=== PATIENT | male | born 1960 | race Caucasian/White ===

== ENCOUNTER 2017-11-15 09:11 | Inpatient (IN) | payer MEDICARE, BC ==
[~2017-11-15] VITALS: Ht 182.9 cm; Wt 94.8 kg
[~2017-11-15 09:11] MED LIST: ALBUTEROL2.5 MG/31 INH; ALLEGRA-D 24 H1 EACH PO; ASPIRIN325 PO; COZAAR 25 MG TA25 M1 PO; DIFLUCAN200 MG PO; DUONEB 2.5-0.5 M3 ML INH; KEFLEX500 M1 PO; LEVAQUIN 500 M500 M2 PO; MIRALAX17 GM PO; MIRAPEX0.125 MG PO; MS CONTIN 30 MG30 M1 PO; MS CONTIN15 MG PO; MSL20MG/ML PO; NEURONTIN600 MG PO; NYSTATIN 1100000 U/M SW&SWALLOW; OXYCODONE HCL5 MG PO; PERCOCET PO; PREDNISONE 10 M10 MG PO; PREDNISONE 20 M20 M1 PO; PROTONIX40 M1 PO; STOOL SOFT-STI1 EACH PO; SYMBICORT160 MCG/4. INH; VALIUM5 MG PO; ZPAK PO
[2017-11-15 09:20] VITALS: BP 117/85
[2017-11-15] MEDS ORDERED: COZAAR 25 MG TA25 MG PO (09:24)
[2017-11-15 09:48] LABS: HEMATOCRIT 32.7 % (42.0-52.0); HEMOGLOBIN 10.3 gm/dL (14.0-18.0); MCH 26.1 pg (26.0-34.0); MCHC 31.6 g/dL (28.0-37.0); MCV 82.4 fL (80.0-100.0); RBC 3.97 mil/uL (4.50-6.00); RDW-CV 17.8 % (10.5-14.5)
[2017-11-15 09:57] LABS: POTASSIUM 4.3 mmol/L (3.5-5.1)
[2017-11-15 10:02] LABS: ALBUMIN 3.2 g/dL (3.4-5.0); TOTAL BILIRUBIN 0.2 mg/dL (<0.1-1.0); TOTAL PROTEIN 6.6 g/dL (6.4-8.2)
[2017-11-15 12:50] VITALS: BP 134/72
--- NOTE | 2017-11-15 13:57 | NUR ---
PATIENT ARRIVED TO UNIT AT 1250. ALERT AND ORIENTED X4. HAVING A SIGNIFICANT AMOUNT OF PAIN AT THIS TIME. DENIES NAUSEA. IV IS PATENT AND SALINE LOCKED AT THIS TIME. SLING IN PLACE. DRESSING C/D/I. VSS ON ROOM AIR. HOURLY ROUNDS HAVE BEEN MAINTAINED THROUGHOUT SHIFT. CALL LIGHT IS WITHIN REACH. NURSING WILL CONTINUE TO MONITOR.
[2017-11-15 16:00] VITALS: BP 114/68
--- NOTE | 2017-11-15 18:32 | NUR ---
ALERT AND ORIENTED X4. PAIN BEING MANAGED WITH PO AND IV PAIN MEDICATION. DENIES NAUSEA. SLING IN PLACE ON LEFT ARM. DRESSING IS C/D/I. PATIENT IS TOLERATING DIET. CAP-NO IN PLACE. VSS ON 2L O2. HOURLY ROUNDS HAVE BEEN MAINTAINED THROUGHOUT SHIFT. CALL LIGHT IS WITHIN REACH. NURSING WILL CONTINUE TO MONITOR.
[2017-11-15 22:00] VITALS: BP 101/66
[2017-11-16 01:08] VITALS: BP 111/63
[2017-11-16 04:08] VITALS: BP 105/64
[2017-11-16 04:18] LABS: ABSOLUTE LYMPHOCYTES 1.3 thou/uL (0.8-5.3); ABSOLUTE NEUTROPHILS 8.9 thou/uL (1.6-8.1); BASOPHILS 0.3 %; EOSINOPHILS 0.1 %; HEMATOCRIT 30.9 % (42.0-52.0); HEMOGLOBIN 9.9 gm/dL (14.0-18.0); LYMPHOCYTES 11.8 %; MCH 26.3 pg (26.0-34.0); MCHC 32.1 g/dL (28.0-37.0); MCV 81.9 fL (80.0-100.0); MONOCYTES 8.9 %; MPV 8.7 fl. (7.2-11.1); NUCLEATED RBCS 0 /100WBC; PLATELET COUNT* 377 thou/uL (150-400); POLYS 78.9 %; RBC 3.77 mil/uL (4.50-6.00); RDW-CV 17.7 % (10.5-14.5); WBC 11.3 thou/uL (4.0-11.0)
[2017-11-16 04:38] LABS: CREATININE 0.9 mg/dL (0.6-1.3); POTASSIUM 4.3 mmol/L (3.5-5.1)
[2017-11-16 08:00] VITALS: BP 129/80
--- NOTE | 2017-11-16 08:11 | NUR ---
ALERT AND ORIENTED X4. FREQUENTLY ASKED FOR PAIN MEDICATION. USING IV AND PO PAIN MEDICATION TO HELP WITH BACK AND LEFT SHOULDER PAIN. DR MADE AWARE OF USAGE OF PAIN MEDICATION. IV INFILTRATED IN RIGHT HAND. NEW IV STARTED WITHOUT DIFFICULTY. O2 AT 2L TO KEEP O2 SAT IN LOW 90'S. ICE APPLIED TO SHOULDER DURING NIGHT. SLING REMAINED IN PLACE ALL NIGHT ON LEFT ARM. DRESSING DRY AND INTACT OVER LEFT SHOULDER. NO C/O N/V. VOIDING WITHOUT DIFFICULTY. CALL LIGHT WITHIN REACH.
--- NOTE | 2017-11-16 12:22 | OP ---
[address] [address] OPERATIVE REPORT Name: CHRISTIANO LOCK III Room: [address] IN [facility]#: [id number] Admission: 11/15/17 Attend Phys: Elena Russo Discharge: Date of : 56 Report #: [id number] THIS REPORT FOR: //name// CC: Chris Colindres PREOPERATIVE DIAGNOSES: History of a fracture dislocation of the shoulder with prior rotator cuff and recurrent tear of rotator cuff with a fracture fragment within the left shoulder. POSTOPERATIVE DIAGNOSES: History of a fracture dislocation of the shoulder with prior rotator cuff and recurrent tear of rotator cuff with a fracture fragment within the left shoulder. PROCEDURES PERFORMED: Left shoulder open rotator cuff repair with screw removal. PRIMARY SURGEON: Chris Nova DO CUSHION FORMER: Marquis Elliott DO ANESTHESIA: General and local. ESTIMATED BLOOD LOSS: 50 mL. SPECIMENS: Intraoperative tissues and cultures. COMPLICATIONS: None. CONDITION: Stable. DISPOSITION: PACU to floor. INDICATIONS FOR PROCEDURE: The patient is a 57-year-old male who suffered a left shoulder fracture dislocation last month. He underwent surgical fixation and stabilization of his fracture. Unfortunately, he did have a portion of his greater tuberosity fragment that did come loose and ____ back within the joint. He presents today for a possible removal of hardware and fixation of this piece as well as his rotator cuff. Risks, benefits, complications, alternatives of surgery have been thoroughly reviewed with him and he is wishing to proceed. DESCRIPTION OF PROCEDURE: The patient was taken to the OR suite, placed supine on the OR table. He was given the benefit of general anesthetic. He was then prepped and draped in the usual sterile fashion, placed in the beach chair position. The head was secured in anatomic alignment. Left shoulder was sterilely prepped. Prior to procedure, [place] [address] OPERATIVE REPORT Name: CHRISTIANO LOCK III Room: [address]#: [id number] Admission: 11/15/17 Attend Phys: Elena Russo Discharge: Date of : 56 Report #: [id number] site, patient and procedure. Procedure began making a lateral incision through his prior incision site. Dissection was carried down through subcutaneous tissues to the level of the deltoid and these fibers were split. The anterior deltoid was released off the anterior portion of the acromion. The patient did have dense adhesions. There was no purulent fluid. However, some joint fluid was sent for cultures. Due to his history of prior infections, there was a small bony fragment that was retracted, attached to the anterior portion of the supraspinatus tendon. This was retracted within the joint, but was able to be reduced. Due to the small size of the fracture fragment, this was excised and the supraspinatus tendon was advanced. A [id number] repair was performed on the posterior aspect of the tear. We then placed two Arthrex corkscrew anchors at the articular margin of the humeral head. These were then sewn up within the supraspinatus tendon and reapproximated with square knots. These were further compressed with two SwiveLocks distally within the humerus anterior and distal to the prior fracture site. The tendon was reduced nicely into its anatomic position. Please note that prior to fixation of the tendon, one of the prior partially-threaded cannulated screw was prominent and this was removed. No other prominent hardware was encountered during the case. The wound was then thoroughly irrigated. The C-arm was brought in for final orthogonal views. All hardware was in good position. There were no additional bony fragments within the joint. The deltoid was reapproximated to the acromion with a #1 TiCron. Deltoid was closed with 0 Vicryl followed by 2-0 Vicryl for skin and interrupted nylon. Local was injected around the incision as well. The patient tolerated the procedure well and was transferred to PACU in stable condition. Postoperative course, the patient will be admitted for 48 hours of IV antibiotics with vancomycin due to his prior history of MRSA infections. Tolerated the procedure well. DICTATED BY: Dr. Marquis Elliott. <ELECTRONICALLY SIGNED> By: Chris Nova DO 11/16/17 1222 1622 [id number] Nova DO /nt
--- NOTE | 2017-11-16 17:39 | NUR ---
ALERT AND ORIENTED X4. UP STAND BY ASSIST IN ROOM. IV IS PATENT AND INFUSING. PAIN BEING MANAGED WITH PO AND IV PAIN MEDICATION. DENIES NAUSEA. ATTENDED PT AND OT THIS SHIFT. ICE PACKS IN PLACE. DRESSING IS C/D/I. VSS ON ROOM AIR. HOURLY ROUNDS HAVE BEEN MAINTAINED THROUGHOUT SHIFT. CALL LIGHT IS WITHIN REACH. NURSING WILL CONTINUE TO MONITOR.
[2017-11-16 17:54] VITALS: BP 103/60
[2017-11-16 21:13] VITALS: BP 126/84
[2017-11-17 00:29] VITALS: BP 146/72
[2017-11-17 04:10] LABS: ABSOLUTE BASOPHILS 0.1 thou/uL (0.0-0.2); ABSOLUTE EOSINOPHILS 0.4 thou/uL (0.0-0.7); ABSOLUTE LYMPHOCYTES 2.4 thou/uL (0.8-5.3); ABSOLUTE MONOCYTES 0.9 thou/uL (0.0-1.2); ABSOLUTE NEUTROPHILS 4.3 thou/uL (1.6-8.1); BASOPHILS 1.2 %; HEMATOCRIT 32.7 % (42.0-52.0); HEMOGLOBIN 10.3 gm/dL (14.0-18.0); LYMPHOCYTES 29.5 %; MCH 26.3 pg (26.0-34.0); MCHC 31.6 g/dL (28.0-37.0); MCV 83.3 fL (80.0-100.0); MONOCYTES 11.3 %; MPV 8.6 fl. (7.2-11.1); NUCLEATED RBCS 0 /100WBC; PLATELET COUNT* 325 thou/uL (150-400); RBC 3.93 mil/uL (4.50-6.00); RDW-CV 18.2 % (10.5-14.5); WBC 8.2 thou/uL (4.0-11.0)
[2017-11-17 04:43] VITALS: BP 125/77
--- NOTE | 2017-11-17 05:07 | NUR ---
ALERT AND ORIENTED X4. RESTING QUIETLY IN BED LAST NIGHT. USING PO AND IV PAIN MEDICATION TO HELP WITH LEFT SHOULDER AND LOWER BACK PAIN. NO C/O N/V. WEARNG SLING ON LEFT ARM. NO C/O NUMBNESS OR TINGLING IN LEFT HAND/ FINGERS. LEFT FINGERS WARM AND PINK. PATIENT ABLE TO WIGGLE LEFT FINGERS. DRY DRESSING OVER LEFT SHOULDER INCISION. CONTINUES TO RECEIVE IV ANTIBIODICS. ICE TO LEFT SHOULDER. CALL LIGHT WITHIN REACH.
[2017-11-17 08:00] VITALS: BP 105/53
[2017-11-17 17:47] VITALS: BP 133/84
--- NOTE | 2017-11-17 20:12 | NUR ---
I ASSUMED CARE OF THE PATIENT AT 0700. HE IS ALERT AND ORIENTED X4. BED IS IN THE LOW LOCKED POSITION AND CALL LIGHT IS IN REACH. BED ALARM IS ON. POLAR CARE IS ORDERED BUT THERE IS NO POLAR PACK IN THE BUILDING, SO ICE PACKS ARE BEING USED ON HIS LEFT RC REPAIR. HE HAD A LARGE BM TODAY. HOURLY ROUNDING WAS DONE, PATIENT NEEDS WERE MET AND PAIN IS BEING MANAGED WITH PRN MEDS. IS AT THE BEDSIDE MOST OF THE DAY. PATIENT SEEMED PLEASANT, BUT VERY PARTICULAR ABOUT THE TIMING OF HIS MEDICATIONS. PATIENT IS PROGRESSING TOWARD GOALS. WILL CONTINUE TO MONITOR.
[2017-11-17 20:15] VITALS: BP 129/76
[2017-11-18 00:52] VITALS: BP 134/79
[2017-11-18 03:45] VITALS: BP 134/79
[2017-11-18 04:29] LABS: ABSOLUTE BASOPHILS 0.1 thou/uL (0.0-0.2); ABSOLUTE EOSINOPHILS 0.7 thou/uL (0.0-0.7); ABSOLUTE LYMPHOCYTES 2.1 thou/uL (0.8-5.3); ABSOLUTE MONOCYTES 0.8 thou/uL (0.0-1.2); ABSOLUTE NEUTROPHILS 3.5 thou/uL (1.6-8.1); BASOPHILS 1.4 %; EOSINOPHILS 9.7 %; HEMATOCRIT 30.8 % (42.0-52.0); HEMOGLOBIN 9.9 gm/dL (14.0-18.0); MCH 26.3 pg (26.0-34.0); MCHC 32.2 g/dL (28.0-37.0); MCV 81.7 fL (80.0-100.0); MONOCYTES 10.7 %; MPV 8.8 fl. (7.2-11.1); NUCLEATED RBCS 0 /100WBC; PLATELET COUNT* 293 thou/uL (150-400); POLYS 49.2 %; RBC 3.77 mil/uL (4.50-6.00); RDW-CV 17.3 % (10.5-14.5); WBC 7.1 thou/uL (4.0-11.0)
[2017-11-18 04:43] VITALS: BP 121/75
--- NOTE | 2017-11-18 04:48 | NUR ---
ALERT AND ORIENTED X4. USING IV AND PO PAIN MEDICATION TO HELP WITH SHOULDER AND BACK PAIN. LUNG SOUNDS REMAIN COARSE. RECEIVES BREATHING TREATMENTS. CONTINUES TO RECEIVE IV ANTIBIODIC. IV INFILTRATED AND NEW IV STARTED WITHOUT DIFFICULTY. DRESSING DRY AND INTACT OVER LEFT SHOULDER.
[2017-11-18 08:20] VITALS: BP 145/96
--- NOTE | 2017-11-18 11:28 | NUR ---
ASSUMED CARES IN AM. ASSESSMENT DONE AND DOCUMENTED IN CHARTING. PT RIGHT ARE WAS MOBILE LEFT ARM WAS IN A SLING WITH AN ISLAND DRESSING CDI PRESENT. PT C/O PAIN WHICH WAS ADDRESSED SEE RENNY. ORTHO RESIDENT VISITED AND DISCUSSED DC SO I DISCUSSED DC IV PAIN MEDICATIONS. PT VERBALIZED UNDERSTANDING. OT WORKED WITH PT AND ASSISTED IN SHOWERING. DENIES ALL OTHER NEEDED. GAVE REPORT TO RANJIT PERSON.
[2017-11-18 12:04] VITALS: BP 134/79
[2017-11-18] MEDS ORDERED: KEFLEX500 M1 PO (12:08)
[2017-11-18] MEDS ORDERED: HYDROCODONE-AP1 EAC6 PO (12:09)
[2017-11-18] MEDS ORDERED: OXYCODONE HCL5 MG PO (12:11)
--- NOTE | 2017-11-18 13:08 | NUR ---
CM SPOKE TO THE PATIENT TO DISCUSS HOME SITUATION, DISCHARGE PLANNING, AND TO INFROM OF THE ROLE OF CM. PATIENT ALERT, ORIENTED, AND INDEPENDENT. PATIENT RESIDES AT HOME WITH AND SHE IS ABLE TO ASSIST THE PATIENT AT HOME NEEDED. PATIENT USES A CPAP AND 2L O2 AT HOME. PAITENT USES A CANE FOR MOBILITY. PATIENT HAS A HX OF [facility] FOR HH. PATIENT HAS NO HX OF SNF. CM WILL REMAIN AVAILABLE TO ASSIST AND FOLLOW NEEDED.
--- NOTE | 2017-11-18 14:08 | NUR ---
ASSUMED CARE OF PATIENT AT APPROXIMATELY 1100. AGREE WITH PREVIOUS NURSE ASSESSMENT. PATIENT HAD NO COMPLAINTS OF NAUSEA THIS SHIFT. PAIN HAS BEEN MANAGED WITH PAIN MEDICATION. PATIENT DISCHARGED AT 1400 WITH SPOUSE. ALL PERSONAL BELONGINGS LEFT WITH PATIENT. PRESCRIPTIONS AND DISCHARGE INFORMATION SENT WITH PATIENT UPON DISCHARGE.
== END 2017-11-18 14:00 | disposition home or self-care (01) | DRG 501 ==
LOC: M.ORTHSURG 09:11 → M.TBA 09:11 → M.ORTHSURG 13:06 → M.PRE 13:53 → M.ORTHSURG 11-18 14:00
PROVIDERS: Orthopaedic Surgery; ADMIT Internal Medicine
PROC: 0LM20ZZ Reattachment of Left Shoulder Tendon, Open Approach (ICD-10-PCS; principal; 2017-11-15)
PROC: 0RPK04Z Removal of Internal Fixation Device from Left Shoulder Joint, Open Approach (ICD-10-PCS; principal; 2017-11-15)
DX: M75.102 Unspecified rotator cuff tear or rupture of left shoulder, not specified as traumatic (principal); E44.0 Moderate protein-calorie malnutrition; I10 Essential (primary) hypertension; J44.9 Chronic obstructive pulmonary disease, unspecified; K21.9 Gastro-esophageal reflux disease without esophagitis; G89.29 Other chronic pain; Z88.6 Allergy status to analgesic agent; Z88.0 Allergy status to penicillin; Z88.8 Allergy status to other drugs, medicaments and biological substances

== ENCOUNTER 2018-02-11 11:11 | Inpatient (IN) | payer MEDICARE, BC ==
[~2018-02-11] VITALS: Ht 182.9 cm; Wt 95.7 kg
[~2018-02-11 11:11] MED LIST changes: +COZAAR 25 MG TA25 MG PO; +HYDROCODONE-AP1 EAC6 PO
[2018-02-11 11:24] VITALS: BP 140/92
[2018-02-11 11:55] LABS: INFLUENZA A ANTIGEN None Detected (None Detect); INFLUENZA B ANTIGEN None Detected (None Detect)
[2018-02-11 13:24] LABS: HEMATOCRIT 39.5 % (42.0-52.0); HEMOGLOBIN 12.6 gm/dL (14.0-18.0); MCH 24.7 pg (26.0-34.0); MCHC 31.8 g/dL (28.0-37.0); MCV 77.7 fL (80.0-100.0); MPV 8.6 fl. (7.2-11.1); NUCLEATED RBCS 0 /100WBC; PLATELET COUNT* 344 thou/uL (150-400); RBC 5.09 mil/uL (4.50-6.00); WBC 15.7 thou/uL (4.0-11.0)
[2018-02-11 13:27] LABS: CALCIUM 9.5 mg/dL (8.5-10.1); CREATININE 1.1 mg/dL (0.6-1.3); POTASSIUM 4.1 mmol/L (3.5-5.1)
[2018-02-11 13:32] LABS: TOTAL BILIRUBIN 0.5 mg/dL (<0.1-1.0)
[2018-02-11 13:59] LABS: ABSOLUTE LYMPHOCYTES 0.6 thou/uL (0.8-5.3); ABSOLUTE MONOCYTES 0.2 thou/uL (0.0-1.2); ABSOLUTE NEUTROPHILS 14.9 thou/uL (1.6-8.1)
[2018-02-11 14:00] LABS: ANISOCYTOSIS 1+; HYPOCHROMASIA 1+; PLATELET ESTIMATE ADEQUATE; POLYCHROMASIA Occasional
[2018-02-11 14:01] LABS: OVALOCYTES Occasional
[2018-02-11 14:18] LABS: APTT 28.1 Seconds (25.0-31.3); INR 1.1; PROTIME 11.1 Seconds (9.20-11.50)
[2018-02-11 14:41] VITALS: BP 94/60
[2018-02-11 14:50] VITALS: BP 109/67
--- NOTE | 2018-02-11 14:50 | NUR ---
RECIEVED REPORT. PT TRANSFERRED TO ROOM 206 VIA CART. VSS. CARDIAC MONITORING IN PLACE. PT ALERT AND ORIENTED X4. PT ON 2L PER NC WITH O2 SAT AT 97%. IV ABX INFUSING AT THIS TIME. PT REPORTS HEADACHE AND BODY ACHES. ADMISSION HISTORY COMPLETED CHARTED. PT OREITNED TO ROOM AND CALL LIGHT. PT INFORMED OF PLAN OF CARE. PT'S AT BEDSIDE. REPORT GIVEN TO
--- NOTE | 2018-02-11 16:26 | EKG ---
[place] [address] ELECTROCARDIOGRAM REPORT Name: CHRISTIANO LOCK III Room: [address] ADM IN .R.#: [id number] Admission: 02/11/18 Attend Phys: Heather Gaming MD Discharge: Date of : 56 Report #: [id number] THIS REPORT FOR: //name// [facility] ED Test Date: 2018-02-11 Test Time: 13:28:58 Pat Name: CHRISTIANO LOCK Department: Room: [facility] Gender: M Driver: Farzaneh JACKSON : 1960 Requested By: Tom Mendoza Order Number: [id number] MD: Trell Kuo Measurements Intervals [place] Rate: 104 P: 19 [place]: 146 QRS: 2 QRSD: 103 T: 3 QT: 341 QTc: 449 Interpretive Statements Sinus tachycardia Atrial premature complexes Probable left atrial enlargement Posterior infarct, old Compared to ECG 09/21/2017 11:08:24 Atrial premature complex(es) now present Myocardial infarct finding still present Electronically Signed On 02-11-2018 16:26:40 CDT by Trell Kuo [email or web address] <ELECTRONICALLY SIGNED> By: Trell Kuo MD, [facility] 02/11/18 1626 1328 1328 Trell Kuo MD, [facility] /EPI
--- NOTE | 2018-02-11 17:27 | NUR ---
REPORT RECEIVED FROM RAZA HOLMAN. 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 VSS. PT TRACING SR ON THE ELECTRICIANS TOP HELPER. PT COMPLAINED OF HEADACHE. TREATED WITH PRN TYLENOL WITH PARTIAL RELIEF. PT ON 2L NC SAT UPPER 90'S. DENIES ANY SHORTNESS OF BREATH. PT WEARS HOME CPAP AT [facility]. GOING HOME TO GET CPAP FOR PT TONIGHT. SPUTUM CULTURE NEEDED. HOME MEDICATIONS RECONCILED AND RESTARTED. REFER TO EMAR. PHARMACY UPDATED. PT VOIDS PER URINAL. IVF. PT UP SBA TO BATHROOM. PT AFEBRILE. MEDICATIONS PER MAR. PT REPOSITIONS SELF. HOURLY ROUNDING OBSERVED. BED IN LOW POSITION. BED ALARM IN PLACE. FALL PRECAUTIONS IN PLACE. CALL LIGHT WITHIN REACH. WILL CONTINUE PLAN OF CARE.
[2018-02-12] VITALS: BP 99/55
[2018-02-12 04:00] VITALS: BP 102/55
--- NOTE | 2018-02-12 04:51 | NUR ---
ASSUMED CARE OF PT AT 1930, NURSING ASSESSMENT COMPLETED AT START OF SHIFT. SPOUSE AT BEDSIDE. PT ON COOLING PAN TENDER TRACING SINUS RHYTHM. HOURLY ROUNDING COMPLETED, FALL PRECAUTIONS IN PLACE. PT SLOWLY PROGRESSING TOWARDS GOALS. CALL LIGHT WITHIN REACH. NO FALLS THIS SHIFT.
[2018-02-12 04:55] LABS: ABSOLUTE LYMPHOCYTES 0.6 thou/uL (0.8-5.3); ABSOLUTE MONOCYTES 0.1 thou/uL (0.0-1.2); ABSOLUTE NEUTROPHILS 11.3 thou/uL (1.6-8.1); BASOPHILS 0.1 %; HEMATOCRIT 35.3 % (42.0-52.0); LYMPHOCYTES 5.1 %; MCH 24.7 pg (26.0-34.0); MCHC 30.1 g/dL (28.0-37.0); MONOCYTES 1.2 %; MPV 7.9 fl. (7.2-11.1); NUCLEATED RBCS 0 /100WBC; POLYS 93.6 %; RBC 4.31 mil/uL (4.50-6.00); RDW-CV 18.3 % (10.5-14.5); WBC 12.1 thou/uL (4.0-11.0)
[2018-02-12 04:59] LABS: HEMOGLOBIN 10.6 gm/dL (14.0-18.0); PLATELET COUNT* 265 thou/uL (150-400)
[2018-02-12 08:14] VITALS: BP 120/75
--- NOTE | 2018-02-12 08:15 | NUR ---
RECEVIED REPORT. ASSUMED CARE OF PT AT 0730. VSS. CARDIAC MONTIORING IN PLACE SR. AM ASSESSMENT AND VITALS COMPLETED CHARTED. PT ALERT AND ORIENTED. PT ON 2L PER NC WITH O2 SAT AT 99%. PT REPORTS IMPROVEMENT IN BREATHING THIS AM. IVF INFUSING PER ORDERS. PT REPORTS GENERALIZED BACK PAIN. SCHD PAIN MEDS GIVEN. PT SITTING UP EATING BREAKFAST THIS AM. PT VOIDS PER URINAL. CALL LIGHT IS WITHIN REACH. FALL PERCATIONS IN PLACE. WILL CONTINUE TO MONITOR FOR DURATION OF SHIFT.
[2018-02-12 12:07] VITALS: BP 114/70
[2018-02-12 15:29] VITALS: BP 118/69
--- NOTE | 2018-02-12 16:11 | 2DMMODE ---
[place] [address] 2 D/M-MODE ECHOCARDIOGRAM Name: CHRISTIANO LOCK III Room: [address] IN [facility]#: [id number] Admission: 02/11/18 Attend Phys: Heather Gaming, Discharge: Date of : 56 Date of Service: 02/12/18 1611 Report #: [id number] THIS REPORT FOR: //name// APPROVED REPORT Study performed: 02/12/2018 14:04:20 EXAM: Comprehensive 2D, Doppler, and color-flow Echocardiogram Patient Location: In-Patient Room #: [facility] Status: routine BSA: 2.16 HR: 100 bpm BP: 114/70 mmHg Rhythm: NSR Other Information Study Quality: Good Indications Dyspnea 2D Dimensions LVEF(%): 79.97 (>50%) IVSd: 9.42 (7-11mm) LVOT Diam: 23.94 (18-24mm) LVDd: 52.52 mm PWd: 9.84 (7-11mm) Ascending Ao: 34.27 (22-36mm) LVDs: 26.81 (25-40mm) Aortic Root: 36.22 mm Westfall's LVEF: 79.97 % Volumes Left Atrial Volume (Systole) LA ESV Index: 23.80 mL/m2 Aortic Valve AoV Peak Nicolas.: 1.65 m/s AO Peak Gr.: 10.89 mmHg LVOT Max P.02 mmHg AO Mean Gr.: 5.87 mmHg LVOT Mean P.70 mmHg LVOT Max V: 1.23 m/s AO V2 VTI: 28.39 cm LVOT Mean V: 0.74 m/s DORI (VTI): 3.22 cm2 LVOT V1 VTI: 20.29 cm Mitral Valve E/A Ratio: 0.80 [place] [address] 2 D/M-MODE ECHOCARDIOGRAM Name: CHRISTIANO LOCK III Room: [address] IN [facility].#: [id number] Admission: 02/11/18 Attend Phys: Heather Gaming, Discharge: Date of : 56 Date of Service: 02/12/18 1611 Report #: [id number] MV Decel. Time: 165.76 ms MV E Max Nicolas.: 0.83 m/s MV PHT: 48.07 ms MVA (PHT): 4.58 cm2 TDI E/Lateral E': 6.38 E/Medial E': 5.19 Medial E' Nicolas.: 0.16 m/s Lateral E' Nicolas.: 0.13 m/s Pulmonary Valve PV Peak Nicolas.: 1.32 m/s PV Peak Gr.: 7.00 mmHg Left Ventricle The left ventricle is normal size. There is normal LV segmental wall motion. There is normal left ventricular wall thickness. Left ventricular systolic function is normal. The left ventricular ejection fraction is within the normal range. LVEF is 65-70%. Grade I - abnormal relaxation pattern. Right Ventricle The right ventricle is normal size. The right ventricular systolic function is normal. Atria The left atrium size is normal. The right atrium size is normal. Aortic Valve The aortic valve is normal in structure. No aortic regurgitation is present. There is no aortic valvular stenosis. Mitral Valve The mitral valve is normal in structure. There is no mitral valve regurgitation noted. No evidence of mitral valve stenosis. Tricuspid Valve The tricuspid valve is normal in structure. Unable to assess PA pressure. Trace tricuspid regurgitation. Pulmonic Valve Pulmonic valve is not well visualized. There is no pulmonic valvular regurgitation. Great Vessels The aortic root is normal in size. IVC [place] [address] 2 D/M-MODE ECHOCARDIOGRAM Name: CHRISTIANO LOCK III Room: [address] IN [facility]#: [id number] Admission: 02/11/18 Attend Phys: Heather Gaming, Discharge: Date of : 56 Date of Service: 02/12/18 1611 Report #: [id number] collapses with >50% inspiration Pericardium There is no pericardial effusion. <Conclusion> LVEF is 65-70%. <ELECTRONICALLY SIGNED> By: Trell Kuo MD, FACC 02/12/181610 10 10 Trell Kuo MD, FACC /INF
--- NOTE | 2018-02-12 17:04 | NUR ---
CM ASSESSMENT: Pt is A&O. Resides at home with his . Independent with ADLs, worked with PT, walked 350ft. Pt has a cane at home that he can use for mobility. Home bipap and o2 through [facility]. Hx of HH with [facility]. No hx of SNF. Goal is to return home once medically stable. Following.
--- NOTE | 2018-02-12 18:00 | NUR ---
VSS. CARDIAC MONITORING IN PLACE SR/ST THIS SHIFT. PT TITRATED TO RA THIS SHIFT. PT PROGRESSING TOWARDS GOALS. PT'S PAIN MANAGED WITH PO PAIN MEDS. IVF INFUSING PER OERERS. PT UP INDEPENDTLY. PT AMBULATES IN BELLA. PT INFORMED OF PALN OF CARE. PT COMMUNCIATES UNDERSTANDING. CALL LIGHT IS WIHTIN REACH. WILL CONTINUE TO MONTIOR FOR DURATIO OF SHIFT.
[2018-02-12 20:00] VITALS: BP 124/76
[2018-02-13] VITALS: BP 122/83
[2018-02-13 04:05] VITALS: BP 131/76
--- NOTE | 2018-02-13 04:23 | NUR ---
ASSUMED CARE OF PT AT 1930, NURSING ASSESSMENT COMPLETED AT START OF SHIFT. PT VOICED NO CONCERNS AT START OF SHIFT. CONTINUES ON TELE MONITOR TRACING SINUS RHYTHM/SINUS TACHYCARDIA. AMBULATED AROUND 2E/2W HALLWAY SEVERAL TIMES. HOURLY ROUNDING COMPLETED, CALL LIGHT WITHIN REACH. NO FALLS THIS SHIFT.
--- NOTE | 2018-02-13 04:58 | NUR ---
PT DENIES GETTING ANY SLEEP THIS SHIFT. EDUCATED PT ON CURRENT MEDICATIONS AND PROVIDER'S CONCERN FOR RESPIRATORY SUPPRESSION DUE TO HS SCHEDULED MEDS (MORPHINE IR, MORPHINE ER, AND DIAZEPAM). PT VOICED UNDERSTANDING THIS SHIFT.
[2018-02-13 05:20] LABS: HEMATOCRIT 31.2 % (42.0-52.0); HEMOGLOBIN 9.7 gm/dL (14.0-18.0); MCH 24.5 pg (26.0-34.0); MCHC 31.2 g/dL (28.0-37.0); MCV 78.4 fL (80.0-100.0); MPV 8.3 fl. (7.2-11.1); NUCLEATED RBCS 0 /100WBC; PLATELET COUNT* 281 thou/uL (150-400); RBC 3.98 mil/uL (4.50-6.00); RDW-CV 18.3 % (10.5-14.5); WBC 19.3 thou/uL (4.0-11.0)
[2018-02-13 05:57] LABS: ALBUMIN 2.9 g/dL (3.4-5.0); CALCIUM 8.6 mg/dL (8.5-10.1); CREATININE 0.8 mg/dL (0.6-1.3); POTASSIUM 3.5 mmol/L (3.5-5.1); TOTAL BILIRUBIN 0.2 mg/dL (<0.1-1.0); TOTAL PROTEIN 6.1 g/dL (6.4-8.2)
[2018-02-13 06:23] LABS: ABSOLUTE LYMPHOCYTES 0.4 thou/uL (0.8-5.3); ABSOLUTE MONOCYTES 0.4 thou/uL (0.0-1.2); ABSOLUTE NEUTROPHILS 18.5 thou/uL (1.6-8.1); ANISOCYTOSIS 1+; HYPOCHROMASIA 1+; PLATELET ESTIMATE ADEQUATE; POIKILOCYTOSIS 1+
[2018-02-13 08:00] VITALS: BP 126/77
--- NOTE | 2018-02-13 10:11 | NUR ---
ASSUMED RESPONSIBLITY OF PT THIS AM PT IS ALERT AND ORIENTED X 4 PT C/O 10 OUT OF 10 PAIN IN BACK AND SHOULDERS SCHEDULED MEDS GIVEN PT STILL ASKED FOR MORE BUT THIS NURSE DID NOT GIVE ANYTHING PT IS UP INDEPENDENT HRR THERAPY TO EVAL AND TREAT IF NECESSARY PT C/O NOT GETTING SLEEP STEROIDS TAPERED DOWN SHOULD GO HOME TOMORROW CALL LIGHT IN REACH
--- NOTE | 2018-02-13 11:06 | CON ---
[address] [address] CONSULTATION Name: CHRISTIANO LOCK III Room: [address] IN .R.#: [id number] Admission: 02/11/18 Attend Phys: Heather Gaming MD Discharge: Date of : 56 Report #: [id number] THIS REPORT FOR: //name// CC: Heather Mercado HISTORY OF PRESENT ILLNESS: The patient is a 57-year-old male patient with history of COPD. He sees Dr. Cantor in the office and actually, he is scheduled for PFT later this month. He presented to the hospital ER with feeling of fever. He told me he went to sleep feeling fine, woke up at 03:00 a.m. in the morning with fever and chills and his temperature was 103. He is not sure if he had any cough or shortness of breath. He had no wheezes. He had no difficulty breathing. He denied any sick contact. Denied any nasal discharge or obstruction. Denied any sore throat. Denied any abdominal pain. Review of his medical record indicated that he had previous episodes of aspiration pneumonia in the past and he usually is asymptomatic breathing galeas with those episodes. His chest x-ray today showed developing left lower lobe infiltrate. He denied nausea or vomiting, although he had some swelling of the lower extremity in the past, but that had resolved spontaneously. He denied any change in bowel habits. No dysuria, frequency or urgency. No calf tenderness. No headache. No blurring of vision. No ear pain. REVIEW OF SYSTEMS: Twelve-system review of the patient negative, other than as mentioned above. ALLERGIES: NSAIDS, IBUPROFEN, KETOROLAC AND PENICILLIN. HOME MEDICATIONS: He is on Symbicort and pantoprazole. He is on albuterol and he is on oxycodone He is on losartan, morphine and gabapentin. PAST MEDICAL AND SURGICAL HISTORY: History of COPD, hypertension, gastroesophageal reflux disease, left shoulder repair, broken back with rods and chronic pain syndrome. He has right elbow surgery, lens implants, tonsils, hiatal hernia repair, previous pneumonia and previous aspiration pneumonia. FAMILY HISTORY: Reviewed with the patient, noncontributory. SOCIAL HISTORY: He used to smoke, he quit few years ago. He smoked for almost 40+ years. He does not drink alcohol excessively. He does not abuse drugs. REVIEW OF SYSTEMS: Full system review of the patient negative, other than what is mentioned above. PHYSICAL EXAMINATION: VITAL SIGNS: On examination, blood pressure 120/75, breathing 20 times a minute and temperature 36.3. [place] [address] CONSULTATION Name: HAYDECHRISTIANO III Room: [address] IN ..#: [id number] Admission: 02/11/18 Attend Phys: Heather Gaming MD Discharge: Date of : 56 Report #: [id number] GENERAL APPEARANCE: Awake, alert, oriented and answering questions appropriately. HEENT: Head normocephalic, atraumatic. Pupils equal and reactive to light. Extraocular movements intact. Not pale, no jaundice. External ears look healthy and normal. Oral cavity, Mallampati of 2-3. NECK: Supple. CHEST: Diminished air movement of the left lung base. Occasional crackle. No wheezes. No tenderness on chest palpation. HEART: S1, S2. No murmur. ABDOMEN: Benign, soft, lax and nontender. Positive bowel sounds. EXTREMITIES: Lower extremity, no edema. No calf tenderness. SKIN: Normal for age and race. LYMPHATICS: No palpable lymph node. PSYCHIATRIC: Mood and affect appropriate. Good insight and judgment. NEUROLOGIC: Moving 4 extremities spontaneously. No focal weakness. LABORATORY DATA: His chest x-ray showed area of infiltrate in the left side. His white blood count was elevated at 15.7, hemoglobin 12.6 and platelets of 344,000. His INR of 1.1. His lactic acid actually had been elevated. His creatinine is 1.1 with a sodium of 138 and potassium 4.1. CURRENT MEDICATIONS: Reviewed. IMPRESSION: 1. Acute hypoxic respiratory failure. 2. Pneumonia. 3. History of aspiration in the past. 4. Chronic pain syndrome, on pain medication at home. 5. Obstructive sleep apnea, on CPAP. 6. Lactic acidosis. PLAN: The patient with pneumonia, had previous aspiration. There is no history to suggest aspiration at this point, but he needs to be on strict aspiration precautions. Continue antibiotics and continue steroids at this point; however, consider tapering the steroids soon given the lack of wheezes. Monitor his lactic acid and blood pressure. He uses CPAP with oxygen at night. We will continue those for now, wean his oxygen down. Repeat chest x-ray in the morning. Thank you for the consult. We will follow along with you. <ELECTRONICALLY SIGNED> By: Kev Irwin MD 02/13/18 1106 1010 1226Ruslan Holly MD /nt
[2018-02-13 16:00] VITALS: BP 129/76
--- NOTE | 2018-02-13 18:05 | NUR ---
PT RESTED IN BED T/O DAY WALKED AROUND UNIT A COUPLE OF TIMES C/O PAIN T/O DAY AND RECEIVED HOME SCHEDULED MEDS FOR RELIEF PT WITH GOOD APPETITE LSCTA DIMINISHED IN BASES NO COUGH OR CONGESTION NOTED ON RA [id number] ABD SOFT AND NONTENDER LBM TODAY NO CONCERNS AT THIS TIME
[2018-02-13 20:00] VITALS: BP 141/79
[2018-02-14] VITALS: BP 137/81
--- NOTE | 2018-02-14 03:58 | NUR ---
ASSUMED PT CRAE AT 1930, PT IS A&OX4, PT IS MED SURG STATUS, VSS. PT C/O CHRONIC BACK PAIN, ROBYN PAIN MEDICATIONS GIVEN PER MAR. PT HAS IVF INFUSING PER MAR. PT IS UP AD JOHN AND STABLE ON HIS FEET. HE AMBULATES IN THE HALLWAY WELL. PT DID NOT SLEEP MUCH TONIGHT AND HAS NOT SLEPT IN A FEW DAYS. BED IN LOW POSITION, CALL LIGHT IN REACH. HOURLY ROUNDING COMPLETED FOR PT SAFETY.
[2018-02-14 05:37] LABS: CALCIUM 8.1 mg/dL (8.5-10.1); CREATININE 0.8 mg/dL (0.6-1.3); POTASSIUM 3.6 mmol/L (3.5-5.1)
[2018-02-14 06:03] LABS: ABSOLUTE MONOCYTES 0.8 thou/uL (0.0-1.2); ABSOLUTE NEUTROPHILS 10.4 thou/uL (1.6-8.1); BASOPHILS 0.1 %; HEMATOCRIT 30.7 % (42.0-52.0); HEMOGLOBIN 9.7 gm/dL (14.0-18.0); LYMPHOCYTES 15.3 %; MCH 24.7 pg (26.0-34.0); MCHC 31.5 g/dL (28.0-37.0); MCV 78.3 fL (80.0-100.0); MONOCYTES 6.3 %; MPV 8.3 fl. (7.2-11.1); NUCLEATED RBCS 0 /100WBC; PLATELET COUNT* 270 thou/uL (150-400); POLYS 78.3 %; RBC 3.92 mil/uL (4.50-6.00); RDW-CV 18.4 % (10.5-14.5); WBC 13.2 thou/uL (4.0-11.0)
[2018-02-14 08:00] VITALS: BP 129/70
[2018-02-14] MEDS ORDERED: LEVAQUIN 500 M500 M5 PO (11:26)
[2018-02-14 11:27] VITALS: BP 129/70
== END 2018-02-14 13:00 | disposition home or self-care (01) | DRG 871 ==
LOC: M.ERS 11:11 → M.TBA-ER 13:30 → M.2W 13:30
PROVIDERS: Internal Medicine; Nurse Practitioner Family; ADMIT Internal Medicine
DX: A41.9 Sepsis, unspecified organism (principal); J96.01 Acute respiratory failure with hypoxia; J69.0 Pneumonitis due to inhalation of food and vomit; J44.1 Chronic obstructive pulmonary disease with (acute) exacerbation; E87.2 Acidosis; I10 Essential (primary) hypertension; K21.9 Gastro-esophageal reflux disease without esophagitis; G47.33 Obstructive sleep apnea (adult) (pediatric); M54.9 Dorsalgia, unspecified; Z96.651 Presence of right artificial knee joint; G89.4 Chronic pain syndrome; M19.90 Unspecified osteoarthritis, unspecified site; Z88.1 Allergy status to other antibiotic agents; Z88.0 Allergy status to penicillin; Z88.8 Allergy status to other drugs, medicaments and biological substances; Z79.899 Other long term (current) drug therapy; Z87.891 Personal history of nicotine dependence

== ENCOUNTER → 2018-02-20 | Outpatient (CLI) | payer MEDICARE, BC ==
[~2018-02-20] MED LIST changes: +BREO ELLIPTA 11 EACH INH; +LEVAQUIN 500 M500 M5 PO; +MIRAPEX0.5 MG PO; +PROAIR RESPICL90 MCG INH; +PROTONIX40 M4 PO; +SINGULAIR 10 MG10 M1 PO
[2018-02-20 14:43] LABS: ALBUMIN 3.2 g/dL (3.4-5.0); CREATININE 0.9 mg/dL (0.6-1.3); POTASSIUM 4.3 mmol/L (3.5-5.1); TOTAL BILIRUBIN 0.4 mg/dL (<0.1-1.0)
[2018-02-20 14:59] LABS: ABSOLUTE EOSINOPHILS 0.3 thou/uL (0.0-0.7); ABSOLUTE LYMPHOCYTES 1.5 thou/uL (0.8-5.3); ABSOLUTE MONOCYTES 0.9 thou/uL (0.0-1.2); ABSOLUTE NEUTROPHILS 3.9 thou/uL (1.6-8.1); BASOPHILS 0.6 %; HEMATOCRIT 32.2 % (42.0-52.0); HEMOGLOBIN 10.3 gm/dL (14.0-18.0); LYMPHOCYTES 22.7 %; MCH 24.8 pg (26.0-34.0); MCHC 31.8 g/dL (28.0-37.0); MCV 77.9 fL (80.0-100.0); MONOCYTES 13.5 %; MPV 7.6 fl. (7.2-11.1); NUCLEATED RBCS 0 /100WBC; PLATELET COUNT* 391 thou/uL (150-400); POLYS 58.2 %; RBC 4.14 mil/uL (4.50-6.00); RDW-CV 18.6 % (10.5-14.5); WBC 6.7 thou/uL (4.0-11.0)
== END ==
LOC: M.LAB 13:46
PROVIDERS: Family Medicine
DX: J18.1 Lobar pneumonia, unspecified organism (principal); Z88.6 Allergy status to analgesic agent; Z88.0 Allergy status to penicillin

== ENCOUNTER 2018-04-11 12:34 | Inpatient (IN) | payer MEDICARE, BC ==
[~2018-04-11] VITALS: Ht 182.9 cm; Wt 95.1 kg
[~2018-04-11 12:34] MED LIST changes: -BREO ELLIPTA 11 EACH INH; -MIRAPEX0.5 MG PO; -PROAIR RESPICL90 MCG INH; -PROTONIX40 M4 PO; -SINGULAIR 10 MG10 M1 PO
[2018-04-11 12:44] VITALS: BP 155/88
[2018-04-11] MEDS ORDERED: MIRAPEX0.5 MG PO (12:51)
[2018-04-11] MEDS ORDERED: PROTONIX40 M4 PO (12:51)
[2018-04-11] MEDS ORDERED: BREO ELLIPTA 11 EACH INH (12:52)
[2018-04-11] MEDS ORDERED: SINGULAIR 10 MG10 M1 PO (12:52)
[2018-04-11] MEDS ORDERED: PROAIR RESPICL90 MCG INH (12:52)
[2018-04-11 13:09] LABS: HEMATOCRIT 35.5 % (42.0-52.0); HEMOGLOBIN 11.3 gm/dL (14.0-18.0); MCH 23.8 pg (26.0-34.0); MCHC 31.7 g/dL (28.0-37.0); MCV 75.1 fL (80.0-100.0); MPV 7.5 fl. (7.2-11.1); NUCLEATED RBCS 0 /100WBC; PLATELET COUNT* 363 thou/uL (150-400); RBC 4.72 mil/uL (4.50-6.00); RDW-CV 20.8 % (10.5-14.5); WBC 13.4 thou/uL (4.0-11.0)
[2018-04-11 13:17] LABS: CALCIUM 9.2 mg/dL (8.5-10.1); CREATININE 0.9 mg/dL (0.6-1.3); POTASSIUM 3.6 mmol/L (3.5-5.1)
[2018-04-11 13:25] LABS: ALBUMIN 3.9 g/dL (3.4-5.0); TOTAL BILIRUBIN 0.5 mg/dL (<0.1-1.0); TOTAL PROTEIN 7.7 g/dL (6.4-8.2)
[2018-04-11 13:28] LABS: ABSOLUTE EOSINOPHILS 0.1 thou/uL (0.0-0.7); ABSOLUTE LYMPHOCYTES 0.8 thou/uL (0.8-5.3); ABSOLUTE MONOCYTES 0.8 thou/uL (0.0-1.2); ABSOLUTE NEUTROPHILS 11.7 thou/uL (1.6-8.1); PLATELET ESTIMATE ADEQUATE
[2018-04-11 13:29] LABS: ANISOCYTOSIS 1+; HYPOCHROMASIA 1+; MICROCYTES 1+
[2018-04-11 13:34] LABS: URINE BILIRUBIN NEGATIVE (Negative); URINE BLOOD NEGATIVE (Negative); URINE CLARITY CLEAR; URINE COLOR YELLOW; URINE GLUCOSE-RANDOM NEGATIVE (Negative); URINE KETONES NEGATIVE (Negative); URINE LEUKOCYTES NEGATIVE (Negative); URINE NITRITE NEGATIVE (Negative); URINE PROTEIN NEGATIVE (Negative); URINE UROBILINOGEN 0.2 E.U./dl (0.2-1.0)
[2018-04-11 14:47] VITALS: BP 110/61
[2018-04-11 15:30] VITALS: BP 112/65
--- NOTE | 2018-04-11 16:11 | NUR ---
RECEIVED PT FROM ER. PT ABLE TO ANSWER ORIENTATION QUESTIONS CORRECTLY. PT DROWSY, UNABLE TO KEEP EYES OPEN, FALLLING ASLEEP QUICKLY. PER EMAR PT RECEIVED BENADRYL IN ER. NO C/O PAIN. FLUIDS INFUSING PER EMAR. 94% ON ROOM AIR. TEMP 99.3. PT VOIIDING PER URINAL, CLEAR YELLOW URINE. ANTIBIOTIC INFSING. GLASSES AND DENTUES AT BEDSIDE. FALL PRECAUTIONS IN PLACE. PT UNABLE TO SIGN FALL AGREEMENT AT THIS TIME, TOO DROWSY. PT IS NOT ACCOMPANIED BY ANYONE AT THIS TIME. HISTROY OBTAINED BY PT. PT BECAME TOO DROWSY DURING ASSESSMENT AND SOME QUESTIONS PT UNABLE TO ANSWER. WILL CONTINUE PLAN OF CARE.
--- NOTE | 2018-04-11 16:39 | NUR ---
SPOUSE IS KRYSTLE AND PHONE NUMBER [phone]
[2018-04-11 20:00] VITALS: BP 116/71
[2018-04-11] MEDS ORDERED: NEURONTIN600 MG PO (22:19)
[2018-04-12 00:24] VITALS: BP 126/74
[2018-04-12 03:30] VITALS: BP 104/55
--- NOTE | 2018-04-12 08:05 | NUR ---
Alert and oriented x 4. Lungs clear and diminished, he's 97-99% on roomair. Vitals are stable. He does take scheduled oral morphine and as needed oral morphine. He also can have IV morphine for extreme pain. He hasn't rated his back pain lower than 8, it's been 8-10. No fever this shift. Hehasn't slept very much. New IV in left forearm.
[2018-04-12 08:15] VITALS: BP 124/80
--- NOTE | 2018-04-12 10:14 | NUR ---
CM SPOKE TO THE PATIENT TO DISCUSS HOME SITUATION, DISCHARGE PLANNING, AND TO INFORM OF THE ROLE OF CM. PATIENT ALERT, ORIENTED, AND INDEPENDENT WITH ADL'S. PATIENT RESIDES AT HOME WITH SPOUSE. PATIENT USES A CANE FOR MOBILITY. PATIENT HAS HOME O2 AND CPAP THRU [facility]. PATIENT HAS A HX OF HH WITH [facility]. PATIENT HAS NO HX OF SNF. PT IS ORDERED. PATIENT PLANS TO RETURN HOME AT D/C. CM WILL REMAIN AVAILABLE TO ASSIST AND FOLLOW NEEDED.
[2018-04-12 16:08] VITALS: BP 100/58
--- NOTE | 2018-04-12 18:11 | NUR ---
PATIENT ALERT AND ORIENTED X 4. VITAL SIGNS STABLE ON ROOM AIR. AFEBRILE. PERRLA. UP AD JOHN IN ROOM. IV PATENT AND SALINE LOCKED. DENIES NAUSEA. PAIN BEING MANAGED WITH PO AND IV PAIN MEDICATIONS. HOURLY ROUNDS MAINTAINED THROUGHOUT THE SHIFT. CALL LIGHT WITHIN REACH. NURSING WILL CONTINUE TO MONITOR.
[2018-04-12 21:45] VITALS: BP 116/74
--- NOTE | 2018-04-13 05:58 | NUR ---
ALERT AND ORIENTED X4. UP AD JOHN AMBULATING IN HALLWAY. CONTINUES TO RECEIVE IV ANTIBIODIC WITHOUT ADVERSE REACHTIONS OR SIDE EFFECTS. RECEIVES BREATHING TREATMENTS. O2 SAT 98% ON ROOM AIR. CALL LIGHT WITHIN REACH.
[2018-04-13] MEDS ORDERED: LEVAQUIN 500 M500 M2 PO (09:18)
[2018-04-13 11:01] LABS: ABSOLUTE BASOPHILS 0.1 thou/uL (0.0-0.2); ABSOLUTE EOSINOPHILS 0.3 thou/uL (0.0-0.7); ABSOLUTE LYMPHOCYTES 1.2 thou/uL (0.8-5.3); ABSOLUTE MONOCYTES 0.3 thou/uL (0.0-1.2); ABSOLUTE NEUTROPHILS 3.2 thou/uL (1.6-8.1); BASOPHILS 1.2 %; EOSINOPHILS 5.1 %; HEMATOCRIT 31.2 % (42.0-52.0); HEMOGLOBIN 9.8 gm/dL (14.0-18.0); LYMPHOCYTES 23.8 %; MCH 24.1 pg (26.0-34.0); MCHC 31.6 g/dL (28.0-37.0); MCV 76.5 fL (80.0-100.0); MONOCYTES 6.8 %; MPV 8.6 fl. (7.2-11.1); NUCLEATED RBCS 0 /100WBC; POLYS 63.1 %; RBC 4.07 mil/uL (4.50-6.00); RDW-CV 20.9 % (10.5-14.5)
[2018-04-13 11:03] LABS: PLATELET COUNT* 242 thou/uL (150-400)
[2018-04-13 11:52] LABS: ANISOCYTOSIS 1+; HYPOCHROMASIA 1+; MACROCYTES 1+; PLATELET ESTIMATE ADEQUATE
[2018-04-13 14:33] VITALS: BP 116/74
[2018-04-13 15:28] VITALS: BP 116/74
--- NOTE | 2018-04-13 15:28 | NUR ---
PATIENT DISCHARGED FROM UNIT AT 1525. ALERT AND ORIENTED X 4. VITAL SIGNS STABLE ON ROOM AIR. UP AD JOHN AND AMBULATING IN HALLWAY. IV DISCONTINUED. DENIES NAUSEA. PAIN HAS BEEN MANAGED WITH PO AND IV PAIN MEDICATION. DISCHARGED INSTRUCTIONS, MEDICATION INFORMATION, AND SCRIPT GIVEN TO PATIENT. LEFT WITH ALL BELONGINGS. PATIENT LEFT WITH FATHER VIA CAR.
== END 2018-04-13 15:25 | disposition home or self-care (01) | DRG 871 ==
LOC: M.ERS 12:34 → M.ORTHSURG 13:58 → M.TBA-ER 13:58 → M.ORTHSURG 15:04
PROVIDERS: Nurse Practitioner Family; ADMIT Internal Medicine
DX: A41.9 Sepsis, unspecified organism (principal); J69.0 Pneumonitis due to inhalation of food and vomit; I10 Essential (primary) hypertension; J44.9 Chronic obstructive pulmonary disease, unspecified; K21.9 Gastro-esophageal reflux disease without esophagitis; Z96.651 Presence of right artificial knee joint; Z96.1 Presence of intraocular lens; Z88.6 Allergy status to analgesic agent; Z88.0 Allergy status to penicillin; Z88.8 Allergy status to other drugs, medicaments and biological substances; Z79.899 Other long term (current) drug therapy

== ENCOUNTER → 2018-10-14 | Outpatient (CLI) | payer MEDICARE, BC ==
[~2018-10-14] MED LIST changes: +BREO ELLIPTA 11 EACH INH; +MIRAPEX0.5 MG PO; +PROAIR RESPICL90 MCG INH; +PROTONIX40 M4 PO; +SINGULAIR 10 MG10 M1 PO
== END ==
LOC: M.RAD 15:57
DX: M48.54XA Collapsed vertebra, not elsewhere classified, thoracic region, initial encounter for fracture (principal); R91.8 Other nonspecific abnormal finding of lung field

== ENCOUNTER 2019-02-01 13:14 | Emergency (ER) | payer MEDICARE, BC ==
[~2019-02-01] VITALS: Ht 182.9 cm; Wt 91.6 kg
[2019-02-01] MEDS ORDERED: PROMETHAZINE V120 ML PO (14:02)
[2019-02-01] MEDS ORDERED: ZPAK PO (14:02)
[2019-02-01] MEDS ORDERED: TESSALON PERLE100 MG PO (14:02)
[2019-02-01] MEDS ORDERED: PREDNISONE 20 M20 MG PO (14:02)
[2019-02-01] MEDS ORDERED: ACETAMINOPHEN-1 EAC1 PO (14:02)
[2019-02-01 14:40] VITALS: BP 127/86
== END 2019-02-01 14:41 | disposition home or self-care (01) ==
LOC: M.ERS 13:14
DX: J18.9 Pneumonia, unspecified organism (principal); J11.1 Influenza due to unidentified influenza virus with other respiratory manifestations; I10 Essential (primary) hypertension; J44.9 Chronic obstructive pulmonary disease, unspecified; K21.9 Gastro-esophageal reflux disease without esophagitis; Z87.01 Personal history of pneumonia (recurrent); Z98.890 Other specified postprocedural states; Z88.0 Allergy status to penicillin; Z88.6 Allergy status to analgesic agent

== ENCOUNTER 2021-06-28 14:11 | Inpatient (IN) | payer MEDICARE, BC ==
[~2021-06-28] VITALS: Ht 182.9 cm; Wt 95.3 kg
[~2021-06-28 14:11] MED LIST changes: +ACETAMINOPHEN-1 EAC1 PO; +PREDNISONE 20 M20 MG PO; +PROMETHAZINE V120 ML PO; +TESSALON PERLE100 MG PO
[2021-06-28 14:18] VITALS: BP 176/107
[2021-06-28 15:13] LABS: HEMATOCRIT 45.4 % (42.0-52.0); HEMOGLOBIN 14.8 gm/dL (14.0-18.0); MCHC 32.6 g/dL (28.0-37.0); MCV 85.9 fL (80.0-100.0); MPV 7.5 fl. (7.2-11.1); NUCLEATED RBCS 0 /100WBC; PLATELET COUNT* 238 thou/uL (150-400); RBC 5.29 mil/uL (4.50-6.00); RDW-CV 16.1 % (10.5-14.5); WBC 14.6 thou/uL (4.0-11.0)
--- NOTE | 2021-06-28 15:15 | EKG ---
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[id number] Requested By: Moi Bowden Order Number: [id number] MD: Trell Kuo Measurements Intervals [place] Rate: 91 P: 16 NC: 143 QRS: 9 QRSD: 93 T: 39 QT: 364 QTc: 448 Interpretive Statements Sinus rhythm Abnormal R-wave progression, early transition Compared to ECG 02/11/2018 13:28:58 Sinus tachycardia no longer present Atrial premature complex(es) no longer present Electronically Signed On 06-28-2021 15:15:44 CDT by Trell Kuo [email or web address] <ELECTRONICALLY SIGNED> By: Trell Kuo MD, [facility] 06/28/21 1515 1449 1449 Trell Kuo MD, [facility] /EPI
[2021-06-28 15:23] LABS: APTT 24.9 Seconds (25.0-31.3); INR 1.1; PROTIME 11.2 Seconds (9.20-11.50)
[2021-06-28 15:27] LABS: BE 4.7 mmol/L (-2 to +3); PCO2 44.1 mmHg (35.0-45.0); PO2 63.9 mmHg (75.0-100.0); pH 7.443 (7.340-7.450)
[2021-06-28 15:43] LABS: CALCIUM 8.8 mg/dL (8.5-10.1); CREATININE 1.1 mg/dL (0.6-1.3); POTASSIUM 3.8 mmol/L (3.5-5.1)
[2021-06-28 15:50] LABS: ALBUMIN 3.4 g/dL (3.4-5.0); TOTAL BILIRUBIN 0.4 mg/dL (<0.1-1.0); TOTAL PROTEIN 6.7 g/dL (6.4-8.2)
[2021-06-28 16:20] LABS: ABSOLUTE LYMPHOCYTES 1.8 thou/uL (0.8-5.3); ABSOLUTE MONOCYTES 0.4 thou/uL (0.0-1.2); ABSOLUTE NEUTROPHILS 12.4 thou/uL (1.6-8.1)
[2021-06-28 16:22] LABS: PLATELET ESTIMATE ADEQUATE
[2021-06-28 16:23] LABS: ANISOCYTOSIS 1+
[2021-06-28 19:50] VITALS: BP 158/62
[2021-06-28 20:30] VITALS: BP 135/81
[2021-06-29] VITALS (7 sets, daily range): BP systolic 127–163; BP diastolic 64–90
[2021-06-29 05:19] LABS: ABSOLUTE BASOPHILS 0.1 thou/uL (0.0-0.2); ABSOLUTE LYMPHOCYTES 1.3 thou/uL (0.8-5.3); ABSOLUTE MONOCYTES 0.4 thou/uL (0.0-1.2); ABSOLUTE NEUTROPHILS 7.4 thou/uL (1.6-8.1); HEMATOCRIT 41.4 % (42.0-52.0); LYMPHOCYTES 14.1 %; MCH 27.5 pg (26.0-34.0); MCHC 31.5 g/dL (28.0-37.0); MCV 87.2 fL (80.0-100.0); MONOCYTES 4.7 %; MPV 7.7 fl. (7.2-11.1); NUCLEATED RBCS 0 /100WBC; PLATELET COUNT* 269 thou/uL (150-400); POLYS 80.2 %; RBC 4.74 mil/uL (4.50-6.00); RDW-CV 15.9 % (10.5-14.5); WBC 9.2 thou/uL (4.0-11.0)
[2021-06-29 05:27] LABS: CALCIUM 8.6 mg/dL (8.5-10.1); CREATININE 0.9 mg/dL (0.6-1.3); POTASSIUM 4.2 mmol/L (3.5-5.1)
--- NOTE | 2021-06-29 06:30 | NUR ---
PATIENT ADMITTED TO ROOM 112 FROM THE ER AT APPROXIMATELY 1999. REPORT GIVEN FROM ER NURSE OLEGARIO. PATIENT ORIENTED TO ROOM AND POLICIES. VSS ON 2L 02 VIA NASAL CANNULA. PATIENT VERY PLEASANT AND COOPERATIVE. MEDICATIONS GIVEN ORDERED AND CHARTED. IV IN LEFT AC-NS @ 100ML/HR. PATIENT INSTRUCTED TO USE CALL LIGHT WHEN NEEDING ASSISTANCE. HOURLY ROUNDS MADE. WILL CONTINUE WITH PLAN OF CARE AND NURSING TO MONITOR.
--- NOTE | 2021-06-29 15:11 | NUR ---
Pt is A&O. Resides at home with . Active and independent. Pt stated that he use to have home o2, but it was discontinued. Pt stated that he does still have the concentrator. Pt wears a bipap at night, through [employer]. Hx of [facility]. No hx of SNF. Pt is currently on 2l, continue to wean. Pt is covid positive, fully vaccinated. Anticipate dc tomorrow to home, no needs
[2021-06-30 00:05] VITALS: BP 136/67
[2021-06-30 04:00] VITALS: BP 139/79
[2021-06-30 04:32] LABS: HEMOGLOBIN 12.8 gm/dL (14.0-18.0); MCH 27.4 pg (26.0-34.0); MCHC 31.3 g/dL (28.0-37.0); MCV 87.6 fL (80.0-100.0); MPV 7.6 fl. (7.2-11.1); RBC 4.68 mil/uL (4.50-6.00); RDW-CV 16.2 % (10.5-14.5); WBC 6.2 thou/uL (4.0-11.0)
[2021-06-30 04:58] LABS: ALBUMIN 2.9 g/dL (3.4-5.0); CALCIUM 8.6 mg/dL (8.5-10.1); CREATININE 0.8 mg/dL (0.6-1.3); MAGNESIUM 2.2 mg/dL (1.8-2.4); POTASSIUM 3.9 mmol/L (3.5-5.1); TOTAL BILIRUBIN 0.3 mg/dL (<0.1-1.0); TOTAL PROTEIN 6.1 g/dL (6.4-8.2)
--- NOTE | 2021-06-30 07:06 | NUR ---
PT SLEPT WELL AFTER MIDNIGHT. NEW LFA IV, ABX GIVEN ORDERED. RECEIVING SCHEDULED PAIN MED AND PRN PAIN MED ONCE THIS SHIFT. RECEIVED MED FOR HEADACHE WITH GOOD RESULT. O2 2L NC OVERNIGHT SINCE PT DID NOT BRING HOME CPAP. SATS 97%. SR SB ON TELE MONITOR, DROPPED TO 38 BRIEFLY AT TIMES OVERNIGHT. HS ACCUCHECK 209, INSULIN GIVEN ORDERED. UP AD JOHN IN ROOM. ABLE TO USE CALL LITE AND MAKE NEEDS KNOWN
[2021-06-30 07:20] VITALS: BP 136/84
[2021-06-30] MEDS ORDERED: DEXAMETHASONE 22 M1 PO (09:09)
[2021-06-30] MEDS ORDERED: LEVOFLOXACIN500 MG PO (09:09)
[2021-06-30 10:00] VITALS: BP 136/84
[2021-06-30] MEDS ORDERED: COMPAZINE10 M2 PO (11:41)
--- NOTE | 2021-06-30 12:55 | NUR ---
Medically stable to dc to home today. Ex ox ordered. Pt has a concentrator at home, but if he needs portable tanks for mobility, will need to be a new o2 set up. CM await ex ox completion
[2021-06-30 13:17] VITALS: BP 131/78
[2021-06-30 14:13] VITALS: BP 136/84
--- NOTE | 2021-06-30 14:28 | NUR ---
PT GIVEN DISCHARGE INFORMATION, CARE NOTES, AND PRESCRIPTIONS SENT TO PHARMACY. IV REMOVED. PT BELONGINGS GATHERED. PT REFUSED HOME HEALTH. FALL RISK PRECAUTIONS IN PLACE. ACCU CHECKS COMPLETED. HEART AND O2 MONITORED. HOURLY ROUNDING COMPLETED. PT LEFT VIA WHEELCHAIR WITH NURSING STAFF TO HOME WITH HOME HEALTH.
== END 2021-06-30 14:42 | disposition home health service (06) | DRG 177 ==
LOC: M.ERS 14:11 → M.ORTHSURG 16:15 → M.TBA-ER 16:15 → M.ORTHSURG 20:00
PROVIDERS: Emergency Medicine; Internal Medicine; ADMIT Internal Medicine; ATTEND Internal Medicine
PROC: XW033E5 Introduction of Remdesivir Anti-infective into Peripheral Vein, Percutaneous Approach, New Technology Group 5 (ICD-10-PCS; principal; 2021-06-28)
PROC: XW13325 Transfusion of Convalescent Plasma (Nonautologous) into Peripheral Vein, Percutaneous Approach, New Technology Group 5 (ICD-10-PCS; 2021-06-29)
DX: U07.1 COVID-19 (principal); J96.21 Acute and chronic respiratory failure with hypoxia; J12.82 Pneumonia due to coronavirus disease 2019; J44.0 Chronic obstructive pulmonary disease with (acute) lower respiratory infection; J44.1 Chronic obstructive pulmonary disease with (acute) exacerbation; I10 Essential (primary) hypertension; K21.9 Gastro-esophageal reflux disease without esophagitis; Z96.651 Presence of right artificial knee joint; Z96.1 Presence of intraocular lens; G89.29 Other chronic pain; M19.90 Unspecified osteoarthritis, unspecified site; Z87.01 Personal history of pneumonia (recurrent); Z79.899 Other long term (current) drug therapy; Z79.51 Long term (current) use of inhaled steroids; Z88.0 Allergy status to penicillin; Z88.8 Allergy status to other drugs, medicaments and biological substances; Z87.891 Personal history of nicotine dependence; Z79.891 Long term (current) use of opiate analgesic